=== PATIENT | female | born 1945 | race Caucasian/White ===

== ENCOUNTER 2019-07-08 07:28 | Observation (INO) | payer MEDICARE ==
[~2019-07-08 07:28] MED LIST: Povidone-Iodine 10% Soln 118.25 ML Bottle ONE
[2019-07-08] MEDS ORDERED: ceFAZolin 2 GM in Sodium Chloride 0.9% 50 ML IV ONE (08:00)
[2019-07-08] MEDS ORDERED: Lactated Ringers 1,000 ML IV SCH (08:00)
[2019-07-08] MEDS: Nozin Nasal Sanitizer NASBOTH SCH ×2 (08:45→20:28)
[2019-07-08] MEDS ORDERED: Tranexamic Acid 900 MG in Sodium Chloride 0.9% 50 ML IV ONE ×2 (09:15→14:00)
[2019-07-08] MEDS ORDERED: Propofol 200 MG/20 ML SDV ONE ×2 (10:42→11:25)
[2019-07-08] MEDS ORDERED: fentaNYL 100 MCG/2 ML SDV ONE (10:42)
[2019-07-08] MEDS ORDERED: Midazolam 1 MG/ML 2 ML SDV ONE (10:42)
[2019-07-08] MEDS ORDERED: Lactated Ringers 1,000 ML ONE (11:26)
[2019-07-08] MEDS ORDERED: Tranexamic Acid 900 MG in Sodium Chloride 0.9% 50 ML IV PRN (12:00)
[2019-07-08] MEDS ORDERED: Magnesium Hydroxide 400 MG/5 ML Susp 30 ML Cup PO PRN (12:13)
[2019-07-08] MEDS ORDERED: Lidocaine 2% Viscous Solution 15 ML Cup PO PRN (12:22)
[2019-07-08] MEDS ORDERED: Zolpidem 5 MG Tab PO PRN (12:22)
[2019-07-08] MEDS ORDERED: Aluminum Hydroxide/Magnesium Hydroxide/Simethicone Susp 30 ML Cup PO PRN (12:22)
[2019-07-08] MEDS: Ondansetron 4 MG/2 ML SDV IVPUSH PRN (15:12)
[2019-07-08] MEDS: Ketorolac 30 MG/ML SDV IVPUSH SCH (15:41)
--- NOTE | 2019-07-08 15:50 | CR ---
Knee 1V or 2V Rt CLINICAL HISTORY: 2 view FINDINGS: Patient is status post ascending right knee arthroplasty. There is intra-articular and subcutaneous air. Components appear well seated Impression: Status post recent 3 component total knee arthroplasty
[2019-07-08] MEDS: Morphine 2 MG/ML Syringe IVPUSH PRN ×4 (16:09→20:21)
[2019-07-08] MEDS: Sodium Chloride 0.9% 1,000 ML IV SCH (17:23)
[2019-07-08] MEDS: ceFAZolin 1 GM in Premix Bag 1 BAG IV SCH (17:25)
[2019-07-08] MEDS: Docusate Sodium 100 MG Cap PO SCH (20:28)
[2019-07-08] MEDS: LORazepam 0.5 MG Tab PO PRN (21:11)
[2019-07-08] MEDS: Acetaminophen/oxyCODONE 325-5 MG Tab PO PRN (22:57)
[2019-07-09] MEDS: Ketorolac 30 MG/ML SDV IVPUSH SCH ×3 (00:18→16:54)
[2019-07-09] MEDS: ceFAZolin 1 GM in Premix Bag 1 BAG IV SCH ×2 (00:23→09:59)
[2019-07-09] MEDS: Sodium Chloride 0.9% 1,000 ML IV SCH (02:07)
[2019-07-09] MEDS: Acetaminophen/HYDROcodone 325-5 MG Tab PO PRN ×3 (03:31→21:06)
[2019-07-09] MEDS: Acetaminophen/oxyCODONE 325-5 MG Tab PO PRN (07:34)
[2019-07-09] MEDS: Ondansetron 4 MG/2 ML SDV IVPUSH PRN (07:34)
[2019-07-09] MEDS: LORazepam 0.5 MG Tab PO PRN (07:45)
[2019-07-09] MEDS ORDERED: Non-Formulary Medication 1 Each (Levothyroxine Sodium [Synthroid] 125 MCG) PO SCH (09:00)
[2019-07-09] MEDS: Levothyroxine 100 MCG, Levothyroxine 25 MCG PO SCH ×2 (09:36)
[2019-07-09] MEDS: Pantoprazole 40 MG Tab.CR PO SCH (09:36)
[2019-07-09] MEDS: Nozin Nasal Sanitizer NASBOTH SCH ×2 (09:39→21:09)
[2019-07-09] MEDS: Enoxaparin 30 MG/0.3 ML Syringe SUBCUT SCH (09:40)
[2019-07-09] MEDS: Docusate Sodium 100 MG Cap PO SCH ×2 (09:40→21:09)
[2019-07-09] MEDS: Potassium Chloride 20 MEQ Tab.ER PO SCH (09:40)
[2019-07-09] MEDS: Hydrochlorothiazide/Triamterene 25-37.5 Tab PO SCH (09:43)
[2019-07-09] MEDS: amLODIPine 5 MG Tab PO SCH (09:43)
[2019-07-09] MEDS: FLUoxetine 20 MG Cap PO SCH (09:44)
[2019-07-09] MEDS: Metoprolol Succinate 50 MG Tab.ER PO SCH (09:45)
[2019-07-09] MEDS: Cetirizine 10 MG Tab PO SCH (09:46)
[2019-07-09] MEDS ORDERED: HYDROmorphone 2 MG Tab PO PRN (12:22)
[2019-07-10] MEDS: Ketorolac 30 MG/ML SDV IVPUSH SCH ×2 (01:30→07:41)
[2019-07-10] MEDS: Acetaminophen/HYDROcodone 325-5 MG Tab PO PRN (05:45)
[2019-07-10] MEDS: Levothyroxine 100 MCG, Levothyroxine 25 MCG PO SCH ×2 (07:40)
[2019-07-10] MEDS: Pantoprazole 40 MG Tab.CR PO SCH (07:41)
[2019-07-10] MEDS: Hydrochlorothiazide/Triamterene 25-37.5 Tab PO SCH (08:34)
[2019-07-10] MEDS: Cetirizine 10 MG Tab PO SCH (08:34)
[2019-07-10] MEDS: Docusate Sodium 100 MG Cap PO SCH (08:34)
[2019-07-10] MEDS: Metoprolol Succinate 50 MG Tab.ER PO SCH (08:34)
[2019-07-10] MEDS: FLUoxetine 20 MG Cap PO SCH (08:34)
[2019-07-10] MEDS: amLODIPine 5 MG Tab PO SCH (08:34)
[2019-07-10] MEDS: Potassium Chloride 20 MEQ Tab.ER PO SCH (08:34)
[2019-07-10] MEDS: Nozin Nasal Sanitizer NASBOTH SCH (08:35)
[2019-07-10] MEDS: Enoxaparin 30 MG/0.3 ML Syringe SUBCUT SCH (08:35)
[2019-07-10 11:05] VITALS: BP 138/74; PULSE 78
--- NOTE | 2019-07-10 11:42 | PCM.SURGPN ---
- General Info Date of Service: 07/09/19 Date of Surgery/Procedure: 07/08/19 POD#: 1 Functional Status: Reports: Pain Controlled, Ambulating - Review of Systems General: Reports: No Symptoms HEENT: Reports: No Symptoms Pulmonary: Reports: No Symptoms Cardiovascular: Reports: No Symptoms Gastrointestinal: Reports: Nausea Genitourinary: Reports: No Symptoms Musculoskeletal: Reports: No Symptoms Skin: Reports: No Symptoms Neurological: Reports: No Symptoms Psychiatric: Reports: No Symptoms - Patient Data Vitals - Most Recent: Last Vital Signs Temp 36.9 C 07/10/19 11:04 Pulse 78 07/10/19 11:04 Resp 16 07/10/19 11:04 BP 138/74 07/10/19 11:04 Pulse Ox 96 07/10/19 11:04 Weight - Most Recent: 90.718 kg I&O - Last 24 Hours: Intake & Output 07/09/19 07/10/19 07/10/19 22:59 06:59 14:59 Intake Total 480 Output Total 400 Balance 80 Med Orders - Current: Current Medications Hydrocodone Bitart/Acetaminophen ([place] 325-5 Mg) 1 tab PO Q3H PRN PRN Reason: Pain (mild 1-3) Last Admin: 07/10/19 05:45 Dose: 1 tab Al Hydroxide/Mg Hydroxide (Mag-Al Plus) 15 ml PO Q4H PRN PRN Reason: Heartburn Amlodipine Besylate (Norvasc) 5 mg PO DAILY [facility] Last Admin: 07/10/19 08:34 Dose: 5 mg Bandage/Support Products ( Nasal Voice Network Engineer) 1 applic NASBOTH BID [facility] Stop: 07/14/19 21:01 Last Admin: 07/10/19 08:35 Dose: 1 applic Cetirizine HCl (Zyrtec) 10 mg PO DAILY [facility] Last Admin: 07/10/19 08:34 Dose: 10 mg Docusate Sodium (Colace) 100 mg PO BID [facility] Last Admin: 07/10/19 08:34 Dose: 100 mg Enoxaparin Sodium (Lovenox) 30 mg SUBCUT DAILY [facility] Last Admin: 07/10/19 08:35 Dose: 30 mg Fluoxetine HCl (Prozac) 40 mg PO DAILY [facility] Last Admin: 07/10/19 08:34 Dose: 40 mg Hydromorphone HCl (Dilaudid) 2 mg PO Q3H PRN PRN Reason: Pain (severe 7-10) Levothyroxine Sodium 100 mcg/ (Levothyroxine Sodium 25 mcg) 125 mcg PO DAILY@ 0730 [facility] Last Admin: 07/10/19 07:40 Dose: 125 mcg Lidocaine HCl (Xylocaine 2% Viscous) 5 ml PO ASDIRECTED PRN PRN Reason: esophageal spasm Lorazepam (Ativan) 0.5 mg PO BID PRN PRN Reason: Anxiety Last Admin: 07/09/19 07:45 Dose: 0.5 mg Magnesium Hydroxide (Milk Of Magnesia) 30 ml PO BID PRN PRN Reason: Constipation Metoprolol Succinate (Toprol Xl) 100 mg PO DAILY [facility] Last Admin: 07/10/19 08:34 Dose: 100 mg Morphine Sulfate (Morphine) 1 mg IVPUSH Q1H PRN PRN Reason: Breakthrough Pain Last Admin: 07/08/19 20:21 Dose: 1 mg Ondansetron HCl (Zofran) 4 mg IVPUSH Q6H PRN PRN Reason: Nausea/Vomiting Last Admin: 07/09/19 07:34 Dose: 4 mg Pantoprazole Sodium (Protonix) 40 mg PO ACBREAKFAST [facility] Last Admin: 07/10/19 07:41 Dose: 40 mg Potassium Chloride (Klor-Con M20) 20 meq PO DAILY [facility] Last Admin: 07/10/19 08:34 Dose: 20 meq Triamterene/HCTZ (Maxzide 25-37.5 Mg) 1 each PO DAILY [facility] Last Admin: 07/10/19 08:34 Dose: 1 each Zolpidem Tartrate (Ambien) 5 mg PO BEDTIME PRN PRN Reason: Sleep Discontinued Medications Fentanyl (Sublimaze) Confirm Administered Dose 100 mcg .ROUTE .STK-MED ONE Stop: 07/08/19 10:43 Cefazolin Sodium 2 gm/ Sodium (Chloride) 50 mls @ 100 mls/hr IV ONETIME ONE Stop: 07/08/19 08:29 Last Admin: 07/08/19 10:36 Dose: 100 mls/hr Lactated Ringer's (Ringers, Lactated) 1,000 mls @ 75 mls/hr IV ASDIRECTED [facility] Last Admin: 07/08/19 07:53 Dose: 75 mls/hr Tranexamic Acid 900 mg/ Sodium (Chloride) 59 mls @ 236 mls/hr IV ONETIME ONE Stop: 07/08/19 09:29 Last Admin: 07/08/19 10:39 Dose: 236 mls/hr Lactated Ringer's (Ringers, Lactated) Confirm Administered Dose 1,000 mls @ as directed .ROUTE .STK-MED ONE Stop: 07/08/19 11:27 Cefazolin Sodium/Dextrose 1 gm (/ Premix) 50 mls @ 100 mls/hr IV Q8H [facility] Stop: 07/09/19 09:29 Last Admin: 07/09/19 09:59 Dose: 100 mls/hr Sodium Chloride (Normal Saline) 1,000 mls @ 125 mls/hr IV ASDIRECTED [facility] Last Admin: 07/09/19 02:07 Dose: 125 mls/hr Tranexamic Acid 900 mg/ Sodium (Chloride) 59 mls @ 236 mls/hr IV ONETIME ONE Stop: 07/08/19 14:14 Last Admin: 07/08/19 14:32 Dose: 236 mls/hr Ketorolac Tromethamine (Toradol) 15 mg IVPUSH Q8H [facility] Stop: 07/10/19 08:01 Last Admin: 07/10/19 07:41 Dose: 15 mg Midazolam HCl (Versed 1 Mg/Ml) Confirm Administered Dose 2 mg .ROUTE .STK-MED ONE Stop: 07/08/19 10:43 Oxycodone/Acetaminophen (Percocet 325-5 Mg) 1 - 2 tab PO Q4H PRN PRN Reason: Pain Last Admin: 07/09/19 07:34 Dose: 1 tab Povidone Iodine (Betadine 10% Soln) Confirm Administered Dose 1 ml .ROUTE .STK- MED ONE Stop: 07/08/19 06:47 Last Admin: 07/08/19 11:24 Dose: 30 ml Propofol (Diprivan 20 Ml) Confirm Administered Dose 200 mg .ROUTE .STK-MED ONE Stop: 07/08/19 10:43 Propofol (Diprivan 20 Ml) Confirm Administered Dose 200 mg .ROUTE .STK-MED ONE Stop: 07/08/19 11:26 - Exam Wound/Incisions: Healing Well, No Drainage General: Alert, Oriented HEENT: Pupils Equal Neck: Supple Lungs: Clear to Auscultation, Normal Respiratory Effort Cardiovascular: Regular Rate, Regular Rhythm GI/Abdominal Exam: Normal Bowel Sounds, Soft, Non-Tender, No Distention Extremities: Joint Swelling, Limited Range of Motion Skin: Warm, Dry, Intact Neurological: No New Focal Deficit Psy/Mental Status: Alert, Normal Affect, Normal Mood Sepsis Event Note - Evaluation Sepsis Screening Result: No Definite Risk - Focused Exam Vital Signs: Vital Signs Temp Pulse Pulse Resp BP BP Pulse Ox 07/10/19 11:04 36.9 C 78 16 138/74 96 07/10/19 08:34 82 132/82 07/10/19 08:18 36.7 C 86 16 132/82 94 L 07/10/19 03:02 37 C 78 16 159/77 H 95 07/10/19 01:00 37.3 C 81 16 151/79 H 98 Date Exam was Performed: 07/10/19 Time Exam was Performed: 11:37 - Problem List & Annotations (1) Status post total right knee replacement SNOMED Code(s): 4814788250144, 1048385011816 Code(s): Z96.651 - PRESENCE OF RIGHT ARTIFICIAL KNEE JOINT Status: Acute Current Visit: Yes (2) Osteoarthritis of right knee SNOMED Code(s): 026915220501282 Code(s): M17.11 - UNILATERAL PRIMARY OSTEOARTHRITIS, RIGHT KNEE Status: Chronic Current Visit: No Qualifiers: Osteoarthritis type: primary - Problem List Review Problem List Initiated/Reviewed/Updated: Yes - My Orders Last 24 Hours: Active Orders 24 hr Category Date Time Status Admission Status [Patient Status] [ADT] Routine ADT 07/09/19 13:00 Active Ready for Discharge [RC] PER UNIT ROUTINE Care 07/10/19 11:34 Ordered HYDROmorphone [Dilaudid] Med 07/09/19 12:22 Active 2 mg PO Q3H PRN Medication Orders Hydrocodone Bitart/Acetaminophen ([place] 325-5 Mg) 1 tab PO Q3H PRN PRN Reason: Pain (mild 1-3) Last Admin: 07/10/19 05:45 Dose: 1 tab Admin: 07/09/19 21:06 Dose: 1 tab Admin: 07/09/19 13:01 Dose: 1 tab Admin: 07/09/19 03:31 Dose: 1 tab Al Hydroxide/Mg Hydroxide (Mag-Al Plus) 15 ml PO Q4H PRN PRN Reason: Heartburn Amlodipine Besylate (Norvasc) 5 mg PO DAILY [facility] Last Admin: 07/10/19 08:34 Dose: 5 mg Admin: 07/09/19 09:43 Dose: 5 mg Bandage/Support Products ( Nasal Voice Network Engineer) 1 applic NASBOTH BID [facility] Stop: 07/14/19 21:01 Last Admin: 07/10/19 08:35 Dose: 1 applic Admin: 07/09/19 21:09 Dose: 1 applic Admin: 07/09/19 09:39 Dose: 1 applic Admin: 07/08/19 20:28 Dose: 1 applic Admin: 07/08/19 08:45 Dose: 1 applic Cetirizine HCl (Zyrtec) 10 mg PO DAILY [facility] Last Admin: 07/10/19 08:34 Dose: 10 mg Admin: 07/09/19 09:46 Dose: 10 mg Docusate Sodium (Colace) 100 mg PO BID [facility] Last Admin: 07/10/19 08:34 Dose: 100 mg Admin: 07/09/19 21:09 Dose: 100 mg Admin: 07/09/19 09:40 Dose: 100 mg Admin: 07/08/19 20:28 Dose: 100 mg Enoxaparin Sodium (Lovenox) 30 mg SUBCUT DAILY [facility] Last Admin: 07/10/19 08:35 Dose: 30 mg Admin: 07/09/19 09:40 Dose: 30 mg Fluoxetine HCl (Prozac) 40 mg PO DAILY [facility] Last Admin: 07/10/19 08:34 Dose: 40 mg Admin: 07/09/19 09:44 Dose: 40 mg Hydromorphone HCl (Dilaudid) 2 mg PO Q3H PRN PRN Reason: Pain (severe 7-10) Levothyroxine Sodium 100 mcg/ (Levothyroxine Sodium 25 mcg) 125 mcg PO DAILY@ 0730 [facility] Last Admin: 07/10/19 07:40 Dose: 125 mcg Admin: 07/09/19 09:36 Dose: 125 mcg Lidocaine HCl (Xylocaine 2% Viscous) 5 ml PO ASDIRECTED PRN PRN Reason: esophageal spasm Lorazepam (Ativan) 0.5 mg PO BID PRN PRN Reason: Anxiety Last Admin: 07/09/19 07:45 Dose: 0.5 mg Admin: 07/08/19 21:11 Dose: 0.5 mg Magnesium Hydroxide (Milk Of Magnesia) 30 ml PO BID PRN PRN Reason: Constipation Metoprolol Succinate (Toprol Xl) 100 mg PO DAILY [facility] Last Admin: 07/10/19 08:34 Dose: 100 mg Admin: 07/09/19 09:45 Dose: 100 mg Morphine Sulfate (Morphine) 1 mg IVPUSH Q1H PRN PRN Reason: Breakthrough Pain Last Admin: 07/08/19 20:21 Dose: 1 mg Admin: 07/08/19 18:34 Dose: 1 mg Admin: 07/08/19 17:22 Dose: 1 mg Admin: 07/08/19 16:09 Dose: 1 mg Ondansetron HCl (Zofran) 4 mg IVPUSH Q6H PRN PRN Reason: Nausea/Vomiting Last Admin: 07/09/19 07:34 Dose: 4 mg Admin: 07/08/19 15:12 Dose: 4 mg Pantoprazole Sodium (Protonix) 40 mg PO ACBREAKFAST [facility] Last Admin: 07/10/19 07:41 Dose: 40 mg Admin: 07/09/19 09:36 Dose: 40 mg Potassium Chloride (Klor-Con M20) 20 meq PO DAILY [facility] Last Admin: 07/10/19 08:34 Dose: 20 meq Admin: 07/09/19 09:40 Dose: 20 meq Triamterene/HCTZ (Maxzide 25-37.5 Mg) 1 each PO DAILY [facility] Last Admin: 07/10/19 08:34 Dose: 1 each Admin: 07/09/19 09:43 Dose: 1 each Zolpidem Tartrate (Ambien) 5 mg PO BEDTIME PRN PRN Reason: Sleep - Assessment Assessment (Free Text/Narrative):: Some difficulty with pain and sleep overnight, some nausea, did OK with PT - Plan Plan (Free Text/Narrative):: Change pain meds for address nausea, continue PT/OT, dressings off in AM, possibly home tomorrow if pain and nausea under control
--- NOTE | 2019-07-10 11:49 | PCM.DCSUM1 ---
Discharge Summary - Hospital Course Free Text/Narrative:: 73 year old female with progressive right knee pain that has not responded to conservative treatment. Admitted for right TKA Diagnosis: Stroke: No Modified Door Scale: No Symptoms at All Modified [place] Scale Score: 0 - Discharge Data Discharge Date: 07/10/19 Discharge Disposition: Home, Self-Care 01 Condition: Good - Referral to Home Health Primary Care Physician: Morris Parnell MD - Discharge Diagnosis/Problem(s) (1) Status post total right knee replacement SNOMED Code(s): 5819894770561, 0808624956730 ICD Code: Z96.651 - PRESENCE OF RIGHT ARTIFICIAL KNEE JOINT Status: Acute Current Visit: Yes (2) Osteoarthritis of right knee SNOMED Code(s): 966367852459903 ICD Code: M17.11 - UNILATERAL PRIMARY OSTEOARTHRITIS, RIGHT KNEE Status: Chronic Current Visit: No Qualifiers: Osteoarthritis type: primary - Patient Summary/Data Operative Procedure(s) Performed: Right Total Knee Consults: Consultations 07/08/19 12:13 Consult to Case Management/Suction Operator [CONS] Routine Comment: Physician Instructions: Service(s) to be Consulted: Case Management Reason for Consult: Plan for Discharge OT Evaluation and Treatment [CONS] Routine Please Evaluate and Treat. OT Reason for Consult: ADL's This query below is only for informational purposes and is not editable. PT Evaluation and Treatment [CONS] Routine Please Evaluate and Treat. PT Reason for Consult: Post op Ortho Surgery Special Instructions: right knee ROM and ambulation This query below is only for informational purposes and is not editable. PT Evaluation and Treatment [CONS] Routine Please Evaluate and Treat. PT Reason for Consult: Post op Ortho Surgery Knee Pending Discharge: Yes, 1- 2 days Special Instructions: Schedule first outpatient PT appointment in 3-5 day post discharge. This query below is only for informational purposes and is not editable. Hospital Course: Admitted for right TKA. Tolerated surgery well with no complications. Some issues with nausea into POD #1 resolved by POD #2. Up with PT and doing well, independent getting out of bed. Dressings removed and incision is looking very good. Plan home with outpatient PT, ASA for DVT prophylaxis. Follow up in 2 weeks. - Patient Instructions Diet: Usual Diet as Tolerated Activity: Apply Ice, As Tolerated, Full Weight Bearing Driving, Other: May drive when off pain medication and not using walker Showering/Bathing: May Shower Notify Provider of: Fever, Increased Pain, Swelling and Redness, Drainage, Nausea and/or Vomiting Other/Special Instructions: Aspirin twice a day to prevent blood clots - Discharge Plan *PRESCRIPTION DRUG MONITORING PROGRAM REVIEWED*: No *COPY OF PRESCRIPTION DRUG MONITORING REPORT IN PATIENT ERI: No Prescriptions/Med Rec: Hydrocodone/Acetaminophen [[place] 5-325 Tablet] 2 each PO Q6HR PRN #40 tablet PRN Reason: Pain Home Medications: Home Meds Alum Hydrox/Mag Hydrox/Simeth [Maalox Advanced] 15 ml PO Q4H PRN 01/30/15 [ History] Aspirin [Children's Aspirin] 81 mg PO DAILY 01/30/15 [History] FLUoxetine HCl [Fluoxetine HCl] 40 mg PO DAILY 01/30/15 [History] HCTZ/Triamterene [Maxzide 25-37.5 MG] 1 tab PO DAILY 01/30/15 [History] Levothyroxine Sodium [Synthroid] 125 mcg PO DAILY 01/30/15 [History] Lidocaine 2% [Xylocaine Viscous 2%] 5 ml PO ASDIRECTED PRN 01/30/15 [History] Metoprolol Succinate [Toprol Xl] 100 mg PO DAILY 01/30/15 [History] Omeprazole 20 mg PO DAILY 01/30/15 [History] Potassium Chloride [Klor-Con M20] 20 meq PO DAILY 01/30/15 [History] Zolpidem Tartrate [Ambien] 5 mg PO BEDTIME PRN 01/30/15 [History] amLODIPine Besylate [Amlodipine Besylate] 5 mg PO DAILY 01/30/15 [History] metroNIDAZOLE [metroNIDAZOLE 0.75% Cream] 1 applic TOP BID PRN 01/30/15 [History ] Hydrocodone/Acetaminophen [[place] 5-325 Tablet] 2 each PO Q8HR PRN #16 tablet 03/11 [Rx] Cetirizine [ZyrTEC] 10 mg PO DAILY 07/08/19 [History] LORazepam 0.5 mg PO BID PRN 07/08/19 [History] Hydrocodone/Acetaminophen [[place] 5-325 Tablet] 2 each PO Q6HR PRN #40 tablet [Rx] Other Amb Orders: PT Evaluation and Treatment [CONS] Time Frame: 3 Days, Location: None Selected PT Evaluation and Treatment [CONS] Time Frame: 3 Days, Location: None Selected Oxygen Therapy Mode: Room Air Patient Handouts: Venous Thromboembolism Prevention, Preventing Constipation After Surgery Referrals: Hilton Marrero MD [Physician] - 07/23/19 10:45 am - Discharge Summary/Plan Comment DC Time >30 min.: Yes - Patient Data Vitals - Most Recent: Last Vital Signs Temp 36.9 C 07/10/19 11:04 Pulse 78 07/10/19 11:04 Resp 16 07/10/19 11:04 BP 138/74 07/10/19 11:04 Pulse Ox 96 07/10/19 11:04 Weight - Most Recent: 90.718 kg I&O - Last 24 hours: Intake & Output 07/09/19 07/10/19 07/10/19 22:59 06:59 14:59 Intake Total 480 Output Total 400 Balance 80 Med Orders - Current: Current Medications Hydrocodone Bitart/Acetaminophen ([place] 325-5 Mg) 1 tab PO Q3H PRN PRN Reason: Pain (mild 1-3) Last Admin: 07/10/19 05:45 Dose: 1 tab Al Hydroxide/Mg Hydroxide (Mag-Al Plus) 15 ml PO Q4H PRN PRN Reason: Heartburn Amlodipine Besylate (Norvasc) 5 mg PO DAILY [facility] Last Admin: 07/10/19 08:34 Dose: 5 mg Bandage/Support Products ( Nasal Digital Content Manager) 1 applic NASBOTH BID [facility] Stop: 07/14/19 21:01 Last Admin: 07/10/19 08:35 Dose: 1 applic Cetirizine HCl (Zyrtec) 10 mg PO DAILY [facility] Last Admin: 07/10/19 08:34 Dose: 10 mg Docusate Sodium (Colace) 100 mg PO BID [facility] Last Admin: 07/10/19 08:34 Dose: 100 mg Enoxaparin Sodium (Lovenox) 30 mg SUBCUT DAILY [facility] Last Admin: 07/10/19 08:35 Dose: 30 mg Fluoxetine HCl (Prozac) 40 mg PO DAILY [facility] Last Admin: 07/10/19 08:34 Dose: 40 mg Hydromorphone HCl (Dilaudid) 2 mg PO Q3H PRN PRN Reason: Pain (severe 7-10) Levothyroxine Sodium 100 mcg/ (Levothyroxine Sodium 25 mcg) 125 mcg PO DAILY@ 0730 [facility] Last Admin: 07/10/19 07:40 Dose: 125 mcg Lidocaine HCl (Xylocaine 2% Viscous) 5 ml PO ASDIRECTED PRN PRN Reason: esophageal spasm Lorazepam (Ativan) 0.5 mg PO BID PRN PRN Reason: Anxiety Last Admin: 07/09/19 07:45 Dose: 0.5 mg Magnesium Hydroxide (Milk Of Magnesia) 30 ml PO BID PRN PRN Reason: Constipation Metoprolol Succinate (Toprol Xl) 100 mg PO DAILY [facility] Last Admin: 07/10/19 08:34 Dose: 100 mg Morphine Sulfate (Morphine) 1 mg IVPUSH Q1H PRN PRN Reason: Breakthrough Pain Last Admin: 07/08/19 20:21 Dose: 1 mg Ondansetron HCl (Zofran) 4 mg IVPUSH Q6H PRN PRN Reason: Nausea/Vomiting Last Admin: 07/09/19 07:34 Dose: 4 mg Pantoprazole Sodium (Protonix) 40 mg PO ACBREAKFAST [facility] Last Admin: 07/10/19 07:41 Dose: 40 mg Potassium Chloride (Klor-Con M20) 20 meq PO DAILY [facility] Last Admin: 07/10/19 08:34 Dose: 20 meq Triamterene/HCTZ (Maxzide 25-37.5 Mg) 1 each PO DAILY [facility] Last Admin: 07/10/19 08:34 Dose: 1 each Zolpidem Tartrate (Ambien) 5 mg PO BEDTIME PRN PRN Reason: Sleep Discontinued Medications Fentanyl (Sublimaze) Confirm Administered Dose 100 mcg .ROUTE .STK-MED ONE Stop: 07/08/19 10:43 Cefazolin Sodium 2 gm/ Sodium (Chloride) 50 mls @ 100 mls/hr IV ONETIME ONE Stop: 07/08/19 08:29 Last Admin: 07/08/19 10:36 Dose: 100 mls/hr Lactated Ringer's (Ringers, Lactated) 1,000 mls @ 75 mls/hr IV ASDIRECTED [facility] Last Admin: 07/08/19 07:53 Dose: 75 mls/hr Tranexamic Acid 900 mg/ Sodium (Chloride) 59 mls @ 236 mls/hr IV ONETIME ONE Stop: 07/08/19 09:29 Last Admin: 07/08/19 10:39 Dose: 236 mls/hr Lactated Ringer's (Ringers, Lactated) Confirm Administered Dose 1,000 mls @ as directed .ROUTE .STK-MED ONE Stop: 07/08/19 11:27 Cefazolin Sodium/Dextrose 1 gm (/ Premix) 50 mls @ 100 mls/hr IV Q8H [facility] Stop: 07/09/19 09:29 Last Admin: 07/09/19 09:59 Dose: 100 mls/hr Sodium Chloride (Normal Saline) 1,000 mls @ 125 mls/hr IV ASDIRECTED [facility] Last Admin: 07/09/19 02:07 Dose: 125 mls/hr Tranexamic Acid 900 mg/ Sodium (Chloride) 59 mls @ 236 mls/hr IV ONETIME ONE Stop: 07/08/19 14:14 Last Admin: 07/08/19 14:32 Dose: 236 mls/hr Ketorolac Tromethamine (Toradol) 15 mg IVPUSH Q8H [facility] Stop: 07/10/19 08:01 Last Admin: 07/10/19 07:41 Dose: 15 mg Midazolam HCl (Versed 1 Mg/Ml) Confirm Administered Dose 2 mg .ROUTE .STK-MED ONE Stop: 07/08/19 10:43 Oxycodone/Acetaminophen (Percocet 325-5 Mg) 1 - 2 tab PO Q4H PRN PRN Reason: Pain Last Admin: 07/09/19 07:34 Dose: 1 tab Povidone Iodine (Betadine 10% Soln) Confirm Administered Dose 1 ml .ROUTE .STK- MED ONE Stop: 07/08/19 06:47 Last Admin: 07/08/19 11:24 Dose: 30 ml Propofol (Diprivan 20 Ml) Confirm Administered Dose 200 mg .ROUTE .STK-MED ONE Stop: 07/08/19 10:43 Propofol (Diprivan 20 Ml) Confirm Administered Dose 200 mg .ROUTE .STK-MED ONE Stop: 07/08/19 11:26
--- NOTE | 2019-07-10 17:55 | OR ---
DATE OF PROCEDURE: 07/08/2019 SURGEON: Hilton Marrero MD PREOPERATIVE DIAGNOSIS: Osteoarthritis, right knee. POSTOPERATIVE DIAGNOSIS: Osteoarthritis, right knee. PROCEDURE: Right total knee arthroplasty using Mindy Persona components with a size 7 femur, E tibia, 10 mm poly, and 35 mm patella. ANESTHESIA: Spinal with sedation. INDICATIONS: Pooja is a very pleasant 73-year-old female who has been having increasing difficulty with right knee pain for the past several months. She has failed conservative treatment including injection. She has had a history of left total knee arthroplasty which is doing well and now presents for right total knee. Risks, benefits, potential complications of the procedure were discussed. DESCRIPTION OF PROCEDURE: After adequate anesthesia was obtained, the patient was placed supine with a tourniquet about the right upper leg. Right leg was prepped and draped in a sterile fashion. Leg was exsanguinated and tourniquet inflated to 300 mmHg pressure. A longitudinal incision was made over the anterior knee and carried down through the subcutaneous tissues. Medial parapatellar arthrotomy was then performed. The patella was partially everted. Soft tissues are excised from around the patella and the posterior aspect of the patella was then resected with an oscillating saw. Significant degenerative changes noted on both the patella and trochlear groove. The knee was flexed and intramedullary canal was drilled. Intramedullary guide was placed, distal femoral cutting jig was secured, and the distal femur was cut. Attention was then turned to the tibia. The extramedullary tibial alignment jig was placed. This was aligned and secured to the tibia with pins. The proximal tibia was resected with an oscillating saw. Attention was then returned to the femur, which was sized to a 7 component. The 7 cutting jig was secured and remaining cuts were then made. Size 7 trial was placed and centered. The peg holes were drilled in the intercondylar notch, cut was made for a posterior cruciate sacrificing component. Trials removed. The remaining meniscus was excised. The tibia was sized to an E component and the tibial tray was then placed and secured with pins. The medullary canal was drilled and the pins were then punched. The trial components were placed. A 10 mm insert provided excellent balance in both flexion and extension with full extension obtained. Patella sized to a 35 mm component. Patella was drilled and a trial was placed. Knee was taken through range of motion. The patella tracked very well with no lateral release. All trials were removed. The knee was then thoroughly irrigated with pulse lavage. Bone surfaces were dried. The components were cemented in place and excess cement was removed. The knee was held in full extension with a 10 mm trial insert as the cement cured. The knee was again taken through range of motion and found to be well balanced with the 10 mm insert. The knee was irrigated once again. The 10 mm poly was snapped into position. Pulse lavage was used for irrigation and this was followed by a dilute Betadine irrigation, which was left in place for 2.5 minutes. This was then irrigated out once again with pulse lavage. The knee was then closed with a #2 Ethibond in interrupted fashion in the capsular layer , 2-0 Vicryl and a running 3-0 Monocryl on the skin. Steri-Strips were applied. Light compressive dressing was then applied. The patient tolerated the procedure well, there were no complications, and taken from the operating room in stable condition. Hilton Marrero MD /[id number] [id number]
== END 2019-07-10 13:08 | disposition home or self-care (01) ==
LOC: JP.SDS 07:28 → JP.MS 12:13 → JP.SDS 07-09 13:00 → JP.MS 07-09 13:00 → JP.SDS 07-10 10:12
PROVIDERS: ADMIT Specialist; ATTEND Specialist
DX: M17.11 Unilateral primary osteoarthritis, right knee (principal); I10 Essential (primary) hypertension; E03.9 Hypothyroidism, unspecified; E78.2 Mixed hyperlipidemia; F32.5 Major depressive disorder, single episode, in full remission; K21.9 Gastro-esophageal reflux disease without esophagitis; Z96.652 Presence of left artificial knee joint; Z79.899 Other long term (current) drug therapy
CPT/HCPCS: 27447; 36415; 73560; 80048; 85027; 86850; 86900; 86901; 97110; 97161; 97165; 97530; 97535; A9270; C1713; C1776; J0690; J1650; J1885; J2250; J2270; J2405; J2704; J3010; J7030; J7050; J7120; 99024

== ENCOUNTER 2020-08-06 07:29 | Day surgery (SDC) | payer MEDICARE ==
[2020-08-06] MEDS ORDERED: Sodium Chloride 0.9% 10 ML Syringe FLUSH ONE (08:30)
[2020-08-06 09:55] VITALS: BP 153/96; PULSE 75
--- NOTE | 2020-08-06 11:12 | OR ---
DATE OF PROCEDURE: 08/06/2020 SURGEON: Kaila Miranda MD POSTOPERATIVE CARE: Postoperative care will be provided mainly at the [address] [place] [address] [facility] in conjunction with [facility]. PREOPERATIVE DIAGNOSIS: Cataract, left eye. POSTOPERATIVE DIAGNOSIS: Cataract, left eye. PROCEDURE: Phacoemulsification with intraocular lens placement, left eye. ANESTHESIA: Topical and intracameral. ESTIMATED BLOOD LOSS: Minimal. COMPLICATIONS: None. PATHOLOGY SPECIMENS: None. SURGICAL FINDINGS: None. INDICATION FOR PROCEDURE: The patient is a 74-year-old female with history of a visually significant cataract in the left eye, which interfered with activities of daily living. This consisted of a nuclear sclerosis cataract. Following careful discussion of the risks, benefits and alternatives to cataract extraction with intraocular lens placement including blindness and , the patient elected to proceed, and informed, written consent was obtained prior to the procedure. DESCRIPTION OF THE PROCEDURE: The patient was previously identified, and a orlin placed above the left eye. All sources, including the patient, indicated that the left eye was the correct eye. The patient was subsequently taken to the operating room where standard monitors were applied. The patient was then prepped and draped in the usual sterile fashion for ophthalmic surgery. Attention was first directed at the 12 o'clock position where a paracentesis port was fashioned. Shugar solution followed by Viscoat was instilled into the eye. Attention was then directed to the 8:30 position where a triplanar incision was made in a near-clear manner using a keratome. A continuous capsulorrhexis was then made using a combination of the cystotome and Utrata forceps. Hydrodissection was achieved using a balanced salt solution, and the lens rotated nicely. Phacoemulsification was then done using a modified [id number] technique without complication. Phaco time was 6.42 CDE. The remaining cortex was removed using the irrigation/aspiration handpiece. Provisc was then instilled into the eye. A Technis lens, model DCB00, at 20.5 diopters was then placed in the capsular bag using an Minong injector. The remaining viscoelastic was removed using the irrigation/aspiration forceps. All wounds were then checked and found to be watertight. The lid speculum and drapes were removed. Maxitrol ointment was placed in the patient's left eye, and the eye was shielded. The patient tolerated the procedure well. The patient was instructed to follow up tomorrow. All needle and sponge counts were correct at the end of the procedure. Kaila Miranda MD /[id number]
== END 2020-08-06 09:55 | disposition home or self-care (01) ==
LOC: JP.SDS 07:29
PROVIDERS: ATTEND Ophthalmology
DX: H26.9 Unspecified cataract (principal); I10 Essential (primary) hypertension
CPT/HCPCS: 66984; V2632

== ENCOUNTER 2020-08-20 07:29 | Day surgery (SDC) | payer MEDICARE ==
[2020-08-20] MEDS ORDERED: Sodium Chloride 0.9% 10 ML Syringe FLUSH PRN (08:00)
[2020-08-20 09:30] VITALS: BP 145/70; PULSE 73
--- NOTE | 2020-08-21 07:15 | OR ---
DATE OF PROCEDURE: 08/20/2020 SURGEON: Kaila Miranda MD POSTOPERATIVE CARE: Postoperative care will be provided mainly at the [address] [place] [address] [facility] in conjunction with [facility]. PREOPERATIVE DIAGNOSIS: Cataract, right eye. POSTOPERATIVE DIAGNOSIS: Cataract, right eye. PROCEDURE: Phacoemulsification with intraocular lens placement, right eye. ANESTHESIA: Topical and intracameral. ESTIMATED BLOOD LOSS: Minimal. COMPLICATIONS: None. PATHOLOGY SPECIMENS: None. SURGICAL FINDINGS: None. INDICATION FOR PROCEDURE: The patient is a 74-year-old female with history of a visually significant cataract in the right eye, which interfered with activities of daily living. This consisted of a nuclear sclerosis cataract. Following careful discussion of the risks, benefits and alternatives to cataract extraction with intraocular lens placement including blindness and , the patient elected to proceed, and informed, written consent was obtained prior to the procedure. DESCRIPTION OF THE PROCEDURE: The patient was previously identified, and a orlin placed above the right eye. All sources, including the patient, indicated that the right eye was the correct eye. The patient was subsequently taken to the operating room where standard monitors were applied. The patient was then prepped and draped in the usual sterile fashion for ophthalmic surgery. Attention was first directed at the 12 o'clock position where a paracentesis port was fashioned. Shugar solution followed by Viscoat was instilled into the eye. Attention was then directed to the 8:30 position where a triplanar incision was made in a near-clear manner using a keratome. A continuous capsulorrhexis was then made using a combination of the cystotome and Utrata forceps. Hydrodissection was achieved using a balanced salt solution, and the lens rotated nicely. Phacoemulsification was then done using a modified [id number] technique without complication. Phaco time was 4.97 CDE. The remaining cortex was removed using the irrigation/aspiration handpiece. Provisc was then instilled into the eye. A Technis lens, model DCB00, at 19.0 diopter lens was then placed in the capsular bag using an Hannah injector. The remaining viscoelastic was removed using the irrigation/aspiration forceps. All wounds were then checked and found to be watertight. The lid speculum and drapes were removed. Maxitrol ointment was placed in the patient's right eye, and the eye was shielded. The patient tolerated the procedure well. The patient was instructed to follow up tomorrow. All needle and sponge counts were correct at the end of the procedure. There were no surgical findings. Kaila Miranda MD /[id number]
== END 2020-08-20 09:25 | disposition home or self-care (01) ==
LOC: JP.SDS 07:29
PROVIDERS: ATTEND Ophthalmology
DX: H26.9 Unspecified cataract (principal)
CPT/HCPCS: 66984; V2632